=== PATIENT | male | born 1965 | race Caucasian/White ===

== ENCOUNTER 2017-04-15 07:06 | Emergency (ER) | payer OTHER | END 2017-04-15 09:00 | disposition home or self-care (01) | LOC: ER1 07:06 | DX: J45.901 Unspecified asthma with (acute) exacerbation (principal) | CPT/HCPCS: 71020; 93005; 94640; 94664; 99285 ==

== ENCOUNTER → 2020-12-23 | Outpatient (CLI) | payer OTHER ==
[~2020-12-23] MED LIST: MYLICON CHEWABL80 MG PO; PRINIVIL10 MG PO; PROTONIX 40 MG40 M1 PO
== END ==
LOC: LAB 02:43
DX: Z02.83 Encounter for blood-alcohol and blood-drug test (principal)
CPT/HCPCS: 36415